=== PATIENT | male | born 1985 | race Caucasian/White ===

== ENCOUNTER → 2016-06-26 09:58 | Day surgery (SDC) | payer OTHER ==
[~2016-06-26 09:58] MED LIST: Buffered Lidocaine 1% SYR 3ML* 3 ML/SYR SYRINGE INTRADERM ONE; Buffered Lidocaine 1% SYR 3ML* 3 ML/SYR SYRINGE ONE; Bupivacaine 0.5% W/EPI SDV* 30 ML VIAL ONE; Dexamethasone TAB* 4 MG ONE; Dexamethasone TAB* 4 MG PO ONE; EPINEPHrine AMP 1 MG/ML ONE; Famotidine IV* 10 MG/ML 2 ML (20 mg) IV ONE; Famotidine IV* 10 MG/ML 2 ML (20 mg) ONE; KETAMINE HCL* 50 MG/ML 10 ML VIAL ONE; Ketorolac INJ* 30 MG/ML 1 ML VIAL ONE; Midazolam* 1 MG/ML 5 ML VIAL (5 MG) ONE; Morphine INJ* 2 MG/ML 1 ML CARPUJECT IV PRN; Ondansetron INJ* 2 MG/ML VIAL ONE; PROCHLORPERAZINE INJ 5 MG/ML 2 ML VIAL IV PRN; Propofol* 10 MG/ML 20 ML BTL IV PUSH ONE; ceFAZolin 2 GM PREMIX (*) 2 GM/50 ML BAG IVPB ONE; fentaNYL* 50 MCG/ML 2 ML VIAL (100 MCG VIAL) IV PRN; fentaNYL* 50 MCG/ML 2 ML VIAL (100 MCG VIAL) ONE; oxyCODONE/Acetamin 5/325 MG* TAB ONE; oxyCODONE/Acetamin 5/325 MG* TAB PO PRN
[2016-06-26 15:18] VITALS: BP 120/54
--- NOTE | 2016-06-28 08:01 | OP ---
OPERATIVE REPORT: DATE OF OPERATION: 06/26/16 DATE OF : 87 SURGEON: Abisai Franco MD PERSONAL DEVELOPMENT MENTOR: YASH Sood ANESTHESIOLOGIST: Dr. Mt Elise. ANESTHESIA: General. ANTIBIOSIS USED: 2 mg Ancef IV. PRE-OP DIAGNOSIS: Left knee lateral meniscus tear. POST-OP DIAGNOSES: 1. Left knee lateral meniscus tear. 2. Left knee anterior synovitis. OPERATIVE PROCEDURES: 1. Left knee arthroscopic partial lateral meniscectomy. 2. Left knee arthroscopic anterior synovectomy. 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 The patient first saw me in the office on February 11. I recommended surger y at that time but the patient delayed surgery secondary to [employer] interviews. The tiki ent successfully got a job and then presented to me for management. The patient continued to have p ain for the intervening 4 months whenever he flexed his knee past 90 degrees of flexion and felt sig nificantly decreased strength. The patient had treated himself with home exercises and NSAIDs. On exam, the patient had lateral joint line tenderness and a lateral Michelet's test positive. He had limited knee flexion to 110 degrees and pain with any flexion more than that. His MRI demonstrated a complex tear of the lateral meniscus. Of note, the patient added a history of a contralateral rig ht knee meniscal surgery. The patient opted for surgical management. IV FLUIDS: See Anesthesia note. COMPLICATIONS: None. EBL: Minimal. TOURNIQUET TIME: 36 minutes at 330 mmHg. SPECIMENS: None. IMPLANTS: None. DESCRIPTION OF PROCEDURE: A preoperative written consent was obtained. The operative extremity was marked in preoperative holding. The patient was taken back to the operating room and placed supine on the operating room table. Sedated and intubated. A proximal thigh tourniquet was placed about the right thigh. Circumferential leg lazar was used about the right distal thigh. Table was raised and foot of the table was dropped. The left lower extremity was prepped and draped. Surgical time -out was performed. Esmarch was applied and the tourniquet was elevated to 300 mmHg. Left knee ant erolateral arthroscopy portal was established. A diagnostic arthroscopy was commenced. No signific ant lesions about the patellofemoral compartment. Likewise in the medial compartment both of the me niscus and articular cartilage. ACL was intact. I moved to the lateral compartment where there wer e no significant lesions of the articular cartilage. There was however, complex tearing of the later al meniscus. The prominent fracture plane of the meniscus was horizontal and clearly degenerative w ith significant chronic damage to the meniscal tissue but there was also some short partial thicknes s radial components and oblique components to the tearing. An anterior medial knee arthroscopy port al was established under direct visualization. The lateral meniscus was debrided back to a stable r im working through the medial and then the lateral portal. Excellent visualization through the medi al portal that allowed me to be quite sure of sufficient but not excessive meniscal resection to breezy at this tear. Unfortunately, it should be noted that the patient only has a wisp of lateral meniscu s tissue connecting the lateral meniscus tissue posterior and anterior to the popliteal hiatus. Thi s could be an area of problem in the future. Fluid and instruments were removed from the knee. It should be noted, that the meniscal resection was performed with curved arthroscopic shaver as well a s meniscal biters. The skin incisions were closed with [id number] stitches using nylon 4.0 sut ure. I used a 12 cc of 0.5% Marcaine with epinephrine to infuse into the subcutaneous tissue about the skin incisions. Xeroform, 4 x 4's, ABD, Arnel bandages. The patient was awakened and extubated a nd brought to the PACU. DISPOSITION: The patient will follow up with me in 10 to 14 days in the clinic. He should start phy sical therapy in the next several days. Wean off crutches. Percocet, Keflex, aspirin. [id number]/[facility] #: [id number]
== END | disposition home or self-care (01) ==
LOC: OR 09:58
PROVIDERS: ATTEND Orthopaedic Surgery
DX: S83.272A Complex tear of lateral meniscus, current injury, left knee, initial encounter (principal); S83.92XA Sprain of unspecified site of left knee, initial encounter; J45.909 Unspecified asthma, uncomplicated; X50.0XXA Overexertion from strenuous movement or load, initial encounter; Y92.89 Other specified places as the place of occurrence of the external cause
CPT/HCPCS: A9270-GY; J0171; J0690; J1885; J2250; J2405; J2704; J3010; J8540

== ENCOUNTER 2017-06-17 09:11 | Day surgery (SDC) | payer SELFPAY ==
[~2017-06-17 09:11] MED LIST changes: +Buffered Lidocaine 0.9% SYRIN* 5 ML/SYR SYRINGE INTRADERM ONE; -Buffered Lidocaine 1% SYR 3ML* 3 ML/SYR SYRINGE INTRADERM ONE; -Buffered Lidocaine 1% SYR 3ML* 3 ML/SYR SYRINGE ONE; -Bupivacaine 0.5% W/EPI SDV* 30 ML VIAL ONE; -Dexamethasone TAB* 4 MG ONE; -Dexamethasone TAB* 4 MG PO ONE; -EPINEPHrine AMP 1 MG/ML ONE; -Famotidine IV* 10 MG/ML 2 ML (20 mg) IV ONE; -Famotidine IV* 10 MG/ML 2 ML (20 mg) ONE; -KETAMINE HCL* 50 MG/ML 10 ML VIAL ONE; -Ketorolac INJ* 30 MG/ML 1 ML VIAL ONE; -Midazolam* 1 MG/ML 5 ML VIAL (5 MG) ONE; -Morphine INJ* 2 MG/ML 1 ML CARPUJECT IV PRN; -Ondansetron INJ* 2 MG/ML VIAL ONE; -PROCHLORPERAZINE INJ 5 MG/ML 2 ML VIAL IV PRN; -Propofol* 10 MG/ML 20 ML BTL IV PUSH ONE; -ceFAZolin 2 GM PREMIX (*) 2 GM/50 ML BAG IVPB ONE; -fentaNYL* 50 MCG/ML 2 ML VIAL (100 MCG VIAL) IV PRN; -fentaNYL* 50 MCG/ML 2 ML VIAL (100 MCG VIAL) ONE; -oxyCODONE/Acetamin 5/325 MG* TAB ONE; -oxyCODONE/Acetamin 5/325 MG* TAB PO PRN
[2017-06-17] MEDS ORDERED: ceFAZolin 2 GM PREMIX (*) 2 GM/50 ML BAG IVPB ONE (09:23)
[2017-06-17] MEDS ORDERED: Dexamethasone IV* 4 MG/ML 1 ML (4 MG) ONE ×2 (09:23→11:04)
[2017-06-17] MEDS ORDERED: Midazolam* 1 MG/ML 2 ML VIAL (2 MG) ONE (09:54)
[2017-06-17] MEDS ORDERED: fentaNYL* 50 MCG/ML 2 ML VIAL (100 MCG VIAL) ONE (09:54)
[2017-06-17] MEDS ORDERED: Cocaine 4% TOPICAL* 4 ML TOP.SOLN ONE (10:35)
[2017-06-17] MEDS ORDERED: Bacitracin OINTMENT* 0.5% 0.5 oz TUBE ONE (10:36)
[2017-06-17] MEDS ORDERED: Lidocaine 1% MPF wEPI 200,000* 30 ML SDV ONE (10:36)
[2017-06-17] MEDS ORDERED: Bupivacaine 0.25% EPI 200,000* 30 ML SDV ONE (10:44)
[2017-06-17] MEDS ORDERED: Propofol* 10 MG/ML 20 ML BTL IV PUSH ONE (11:04)
[2017-06-17] MEDS ORDERED: Succinylcholine* 20 MG/ML 10 ML VIAL ONE (11:04)
[2017-06-17] MEDS ORDERED: Ondansetron INJ* 2 MG/ML VIAL ONE (11:04)
[2017-06-17] MEDS ORDERED: Lidocaine 2% PF * 5 ML VIAL ONE (11:04)
[2017-06-17] MEDS ORDERED: fentaNYL* 50 MCG/ML 2 ML VIAL (100 MCG VIAL) IV PRN (11:27)
[2017-06-17] MEDS ORDERED: HYDROmorphone INJ* 1 MG/ML CARPUJECT SYRINGE IV PRN (11:27)
[2017-06-17] MEDS ORDERED: Acetaminophen TAB* 325 MG PO PRN (11:27)
[2017-06-17] MEDS ORDERED: Naloxone* 0.4 MG/ML 1 ML VIAL IV PRN (11:27)
[2017-06-17] MEDS ORDERED: Ibuprofen TAB* 600 MG PO PRN (11:27)
[2017-06-17] MEDS ORDERED: Metoclopramide IV* 5 MG/ML 2 ML VIAL ONE (12:46)
[2017-06-17 13:42] VITALS: BP 116/62
--- NOTE | 2017-06-19 09:00 | OP ---
CC: Mt Leroy MD * DATE OF OPERATION: 06/17/[address] [facility] DATE OF : 87 SURGEON: Red Oakley MD SMALL BOAT ENGINEER: Mt Leroy MD ANESTHESIOLOGIST: Ciara Pascual MD ANESTHESIA: General anesthesia with endotracheal intubation. PRE-OP DIAGNOSIS: Desire for cosmetic rhinoplasty. POST-OP DIAGNOSIS: Desire for cosmetic rhinoplasty. OPERATIVE PROCEDURE: Cosmetic rhinoplasty with conservative dorsal recontouring. INDICATIONS: The patient is a 31-year-old male who sustained a nasal injury as a child which was never definitely addressed. He did have a septoplasty in his teens to address nasal bleeding problems and that was successful. He now wants to pursue conservative dorsal nasal contouring to address the deformity from the previous injury. I have discussed full range of treatment options, alternatives, advantages and disadvantages of each, potential risks and complications in detail, and he indicates he understands and wished to proceed. DESCRIPTION OF PROCEDURE: The patient was brought to the operating suite, placed under general anesthesia with oral endotracheal intubation and positioned and padded with eyes closed and taped in the appropriate position for rhinoplasty. The patient was prepped and draped in a standard fashion for nasal surgical procedure and universal protocol time-out procedure was completed. Local anesthesia was administered using 4% cocaine cotton pledgets intranasally bilaterally and 1% lidocaine with 1:200,000 epinephrine was infiltrated at the areas of the marginal incisions and over the superficial aspects of the upper lateral cartilages and nasal bones. After allowing for local anesthesia and hemostasis, attention was directed intranasally where bilateral marginal incisions were made with a 15 blade connecting to an inverted V columellar incision made with an 11 blade. Nasal tip was skeletonized, dorsal angle identified and skin, soft tissue and envelope of the nasal dorsum was elevated. A Pippa elevator was used to create the subperiosteal exposure to the dorsal aspect of the nasal bones and the nasal rasps were used for contouring. There is one prominent knuckle of cartilage at the caudal aspect of the right nasal bone and this was carefully trimmed with a 15-blade. Excellent dorsal nasal contouring was deemed to be achieved. One 5- 0 nylon was used for stabilization of the lower lateral cartilages at the midline. Closure was accomplished with 6 interrupted 6-0 nylon at the columella and 5-0 chromic for the marginal incisions. Mastisol, Steri-Strips, and an Aquaplast dressing were placed in the standard fashion. No nasal packing was needed. The patient was allowed to awaken from anesthesia, was extubated and transported to postanesthesia care unit, awake, stable, breathing spontaneously and with no bleeding. All sponge and sharps counts were correct at the completion of the procedure. Estimated blood loss was negligible and less than 5 cc. [id number]/[facility] #: [id number] MTDD
== END 2017-06-17 13:51 | disposition home or self-care (01) ==
LOC: OREAST 09:11
PROVIDERS: ATTEND Oral & Maxillofacial Surgery
DX: Z01.818 Encounter for other preprocedural examination (principal); Z41.1 Encounter for cosmetic surgery; J34.2 Deviated nasal septum; J45.31 Mild persistent asthma with (acute) exacerbation; J06.9 Acute upper respiratory infection, unspecified; J30.2 Other seasonal allergic rhinitis; B58.00 Toxoplasma oculopathy, unspecified
CPT/HCPCS: A9270-GY; J0330; J0690; J1100; J2001; J2250; J2405; J2704; J2765; J3010